=== PATIENT | female | born 1995 | race Caucasian/White ===

== ENCOUNTER 2019-10-29 08:18 | Emergency (ER) | payer OTHER ==
[~2019-10-29] VITALS: Ht 167.6 cm; Wt 81.6 kg
[2019-10-29 08:39] VITALS: BP 126/86; Ht 167.6 cm; Wt 81.6 kg
== END 2019-10-29 09:40 | disposition home or self-care (01) ==
LOC: ED 08:18
DX: R50.9 Fever, unspecified (principal); R53.83 Other fatigue; R43.8 Other disturbances of smell and taste; M79.10 Myalgia, unspecified site; Z20.828 Contact with and (suspected) exposure to other viral communicable diseases
CPT/HCPCS: U0003-CS